=== PATIENT | male | born 1990 | race Caucasian/White ===

== ENCOUNTER 2016-12-28 13:59 | Emergency (ER) | payer MEDICAID ==
--- NOTE | 2016-12-28 14:56 | EDPHY ---
H & P Stated Complaint: l leg infection/had sutures 2 weeks ago Time Seen by Provider: 12/28/16 14:35 HPI/ROS: Chief complaint: Left leg infection History of present illness: This is a 26-year-old male who presents to the emergency department for recheck of a left leg infection. A few weeks ago patient injured his leg while skiing. He was seen at another facility and had sutures placed in the wound. He states he had the sutures removed approximately 4 days ago at an urgent care. However at that time it was noted that he was having increasing pain, redness and swelling around the wound site. He was started on Keflex and doxycycline which he has been taking as prescribed. He states the pain has decreased. He states the redness has decreased. However he states there is still some swelling that might have worsened around the wound site. He denies other associated signs or symptoms including no fevers or chills, no red streaking up the leg, no abnormal coolness or paresthesias in the leg. - Personal History Current Tetanus/Diphtheria Vaccine: Yes - Medical/Surgical History Hx Asthma: No Hx Chronic Respiratory Disease: No Hx Diabetes: No Hx Cardiac Disease: No Hx Renal Disease: No Hx Cirrhosis: No Hx Alcoholism: No Hx HIV/AIDS: No Hx Splenectomy or Spleen Trauma: No Other PMH: denies - Social History Smoking Status: Never smoked - Physical Exam Exam: General: Alert, nontoxic Skin: There is a well-healing wound to the left anterior mcmahon. Minimal surrounding erythema. There is a line of demarcation placed by the urgent care and the erythema has receded from it. There is mild fluid underneath the wound. No pustular discharge from the wound. Rest of the left leg is unremarkable. Musculoskeletal: Patient has good range of motion and strength all pierce all joints of the left lower extremity. Vascular: DP and PT pulses 2+. Neurologic: Sensation intact throughout the left leg Constitutional: Initial Vital Signs Temperature (C) 36.5 C 12/28/16 14:12 Heart Rate 51 L 12/28/16 14:12 Respiratory Rate 16 12/28/16 14:12 Blood Pressure 124/72 H 12/28/16 14:12 O2 Sat (%) 97 12/28/16 14:12 O2 Delivery Mode Room Air Allergies/Adverse Reactions: Sulfa (Sulfonamide Antibiotics) Allergy (Verified 12/28/16 14:11) Home Medications: Medication Instructions Recorded Doxycycline Hyclate 12/28/16 Keflex 12/28/16 Medical Decision Making Procedures: The fluid underneath the wound was aspirated, serosanguineous fluid was noted, no pustular discharge ED Course/Re-evaluation: Patient was seen under the supervision of my primary supervising physician Dr. Radha Hays. Patient presents for a wound recheck. He does appear to have a cellulitis that is improving. He is concerned about swelling around the wound. Fluid is noted, it is aspirated and appears to be serosanguineous not pustular. I do not believe he has an abscess that requires incision and drainage. He is asked to continue his antibiotics until finished. Home care is discussed. Strict return precautions are given. Patient voiced understanding and agreement with plan. Differential Diagnosis: Included but not limited to cellulitis came abscess, unlikely lymphangitis, necrotizing fasciitis Departure - Departure Disposition: Home, Routine, Self-Care Clinical Impression: Cellulitis Qualifiers: Site of cellulitis: extremity Site of cellulitis of extremity: lower extremity Laterality: left Qualifier Code: (L03.116) Cellulitis of left lower limb Condition: Good Instructions: Cellulitis (ED), Acute Wound Care (ED) Additional Instructions: Follow-up with a primary care doctor for continued evaluation and care Finished the antibiotics were prescribed Apply warm compresses to the wound multiple times daily as discussed If symptoms worsen or new symptoms develop return to the emergency department for recheck
[2016-12-28 15:07] VITALS: BP 116/60; PULSE 65; RESP 18; TEMP 98.8; O2SAT 95
== END 2016-12-28 15:10 | disposition home or self-care (01) ==
DX: L03.116 Cellulitis of left lower limb (principal)